=== PATIENT | male | born 1990 | race African-American/Black ===

== ENCOUNTER 2017-07-24 15:41 | Emergency (ER) | payer BC, OTHER ==
[2017-07-24 16:06] VITALS: BP 140/93
[2017-07-24] MEDS ORDERED: Ondansetron 4 MG Tab.DIS PO ONE (16:47)
--- NOTE | 2017-07-24 16:55 | EDM.PDOC ---
ED HPI GENERAL MEDICAL PROBLEM - General Chief Complaint: Gastrointestinal Problem Stated Complaint: ABDOMINAL PAIN Time Seen by Provider: 07/24/17 16:11 Source of Information: Reports: Patient History Limitations: Reports: No Limitations - History of Present Illness INITIAL COMMENTS - FREE TEXT/NARRATIVE: Patient is a 26-year-old male who presents to the ED complaining of nausea and poor appetite since Saturday. Patient states over the weekend he traveled to [place] and consumed large amounts of alcohol over the weekend. He also smoked marijuana on Saturday and since then has felt increasingly more depressed. States he's been able to drink fluids but when it comes to eating he has no appetite. He believes its all from the marijuana use. He does not utilize marijuana daily basis. He states marijuana usage is months apart. He full of negative thoughts. He's lacking motivation for things he previously enjoyed. He has been sleeping more. States the thought of eating makes him nauseated. There is no suicidal thoughts or plan in place. He does not feel like he wants to hurt anybody else. There's been no diagnosis of depression or anxiety in the past. He denies being alcoholic. He's had no alcohol since Saturday when he traveled back home. Patient recently graduated from college but currently works in the [employer]. He works one month on with a break usually at that time. Denies any fever/chills, diarrhea, sore throat, chest pain, shortness of breath, abdominal pain, acid reflux, or any additional complaints. Patient has no past medical history and currently does not take any medications. Surgical history noncontributory. Social history: Alcohol use when traveling. Marijuana use and frequent. Does not smoke. - Related Data Allergies Allergy/AdvReac Type Severity Reaction Status Date / Time No Known Allergies Allergy Verified 07/24/17 16:07 Home Meds: Home Meds . [No Known Home Meds] 07/24/17 [History] Past Medical History - Past Health History Medical/Surgical History: Denies Medical/Surgical History Social & Family History - Family History Family Medical History: Noncontributory - Tobacco Use Smoking Status *Q: Never Smoker Second Hand Smoke Exposure: No - Caffeine Use Caffeine Use: Reports: Coffee - Recreational Drug Use Recreational Drug Use: Yes Drug Use in Last 12 Months: Yes Recreational Drug Type: Reports: Marijuana/Hashish Recreational Drug Use Frequency: Socially ED ROS GENERAL - Review of Systems Review Of Systems: See Below ED EXAM, GI/ABD - Physical Exam Exam: See Below Exam Limited By: No Limitations General Appearance: Alert, WD/WN, No Apparent Distress, Other (Eyes are injected bilaterally.) Ears: Hearing Grossly Normal Nose: Normal Inspection Throat/Mouth: Normal Inspection, Normal Oropharynx, Normal Voice, No Airway Compromise Head: Atraumatic, Normocephalic Neck: Normal Inspection, Supple Respiratory/Chest: No Respiratory Distress, Lungs Clear, Normal Breath Sounds, No Accessory Muscle Use Cardiovascular: Normal Peripheral Pulses, Regular Rate, Rhythm GI/Abdominal Exam: Normal Bowel Sounds, Soft, Non-Tender, No Organomegaly, No Distention Extremities: Normal Inspection Neurological: Alert, Oriented, CN II-XII Intact, Normal Cognition, No Motor/ Sensory Deficits Psychiatric: Normal Affect, Normal Mood Skin Exam: Warm, Dry, Intact, Normal Color Course - Vital Signs Last Recorded V/S: Last Vital Signs Temp 97.8 F 07/24/17 16:03 Pulse 69 07/24/17 16:03 Resp 14 07/24/17 16:03 BP 140/93 H 07/24/17 16:03 Pulse Ox 99 07/24/17 16:03 - Orders/Labs/Meds Labs: Laboratory Tests 07/24/17 07/24/17 07/24/17 Range/Units 16:55 16:55 17:05 WBC 6.35 (4.23-9.07) K/mm3 RBC 5.36 (4.63-6.08) M/mm3 Hgb 16.1 (13.7-17.5) gm/L Hct 45.6 (40.1-51.0) % MCV 85.1 (79.0-92.2) fl MCH 30.0 (25.7-32.2) pg MCHC 35.3 (32.2-35.5) g/dl RDW Std Deviation 38.3 (35.1-43.9) fL Plt Count 275 (163-337) K/mm3 MPV 9.3 L (9.4-12.3) fl Neut % (Auto) 58.3 (34.0-67.9) % Lymph % (Auto) 32.3 (21.8-53.1) % Sheridan % (Auto) 8.5 (5.3-12.2) % Eos % (Auto) 0.5 L (0.8-7.0) Baso % (Auto) 0.2 (0.1-1.2) % Neut # (Auto) 3.71 (1.78-5.38) K/mm3 Lymph # (Auto) 2.05 (1.32-3.57) K/mm3 Sheridan # (Auto) 0.54 (0.30-0.82) K/mm3 Eos # (Auto) 0.03 L (0.04-0.54) K/mm3 Baso # (Auto) 0.01 (0.01-0.08) K/mm3 Sodium (136-145) mEq/L Potassium (3.5-5.1) mEq/L Chloride (98-107) mEq/L Carbon Dioxide (21-32) mEq/L Anion Gap (5-15) BUN (7-18) mg/dL Creatinine (0.7-1.3) mg/dL Est Cr Clr Drug Dosing mL/min Estimated GFR (MDRD) (>60) mL/min BUN/Creatinine Ratio (14-18) Glucose (74-106) mg/dL Calcium (8.5-10.1) mg/dL Total Bilirubin (0.2-1.0) mg/dL AST (15-37) U/L ALT (16-63) U/L Alkaline Phosphatase (46-116) U/L C-Reactive Protein (<1.0) mg/dL Total Protein (6.4-8.2) g/dl Albumin (3.4-5.0) g/dl Globulin gm/dL Albumin/Globulin Ratio (1-2) Lipase (73-393) U/L TSH 3rd Generation (0.358-3.74) uIU/mL Urine Color Yellow (Yellow) Urine Appearance Clear (Clear) Urine pH 6.0 (5.0-8.0) Ur Specific [place] 1.015 (1.005-1.030) Urine Protein Negative (Negative) Urine Glucose (UA) Negative (Negative) Urine Ketones Negative (Negative) Urine Occult Blood Negative (Negative) Urine Nitrite Negative (Negative) Urine Bilirubin Negative (Negative) Urine Urobilinogen 0.2 (0.2-1.0) Ur Leukocyte Esterase Negative (Negative) Urine RBC 0-5 (0-5) /hpf Urine WBC 0-5 (0-5) /hpf Ur Epithelial Cells Not seen (0-5) /hpf Urine Bacteria Not seen (FEW) /hpf Urine Mucus Not seen (FEW) /hpf Urine Opiates Screen Negative (NEGATIVE) Ur Buprenorphine Scrn Negative (NEGATIVE) Ur Oxycodone Screen Negative (NEGATIVE) Urine Methadone Screen Negative (NEGATIVE) Ur Propoxyphene Screen Negative (NEGATIVE) Ur Barbiturates Screen Negative (NEGATIVE) Ur Tricyclics Screen Negative (NEGATIVE) Ur Phencyclidine Scrn Negative (NEGATIVE) Ur Amphetamine Screen Negative (NEGATIVE) U Methamphetamines Scrn Negative (NEGATIVE) U Benzodiazepines Scrn Negative (NEGATIVE) U Cocaine Metab Screen Negative (NEGATIVE) U Marijuana (THC) Screen Negative (NEGATIVE) Ethyl Alcohol (0.00) gm% 07/24/17 Range/Units 17:05 WBC (4.23-9.07) K/mm3 RBC (4.63-6.08) M/mm3 Hgb (13.7-17.5) gm/L Hct (40.1-51.0) % MCV (79.0-92.2) fl MCH (25.7-32.2) pg MCHC (32.2-35.5) g/dl RDW Std Deviation (35.1-43.9) fL Plt Count (163-337) K/mm3 MPV (9.4-12.3) fl Neut % (Auto) (34.0-67.9) % Lymph % (Auto) (21.8-53.1) % Sheridan % (Auto) (5.3-12.2) % Eos % (Auto) (0.8-7.0) Baso % (Auto) (0.1-1.2) % Neut # (Auto) (1.78-5.38) K/mm3 Lymph # (Auto) (1.32-3.57) K/mm3 Sheridan # (Auto) (0.30-0.82) K/mm3 Eos # (Auto) (0.04-0.54) K/mm3 Baso # (Auto) (0.01-0.08) K/mm3 Sodium 137 (136-145) mEq/L Potassium 3.1 L (3.5-5.1) mEq/L Chloride 100 (98-107) mEq/L Carbon Dioxide 29 (21-32) mEq/L Anion Gap 11.1 (5-15) BUN 15 (7-18) mg/dL Creatinine 1.2 (0.7-1.3) mg/dL Est Cr Clr Drug Dosing 121.66 mL/min Estimated GFR (MDRD) > 60 (>60) mL/min BUN/Creatinine Ratio 12.5 L (14-18) Glucose 70 L (74-106) mg/dL Calcium 9.5 (8.5-10.1) mg/dL Total Bilirubin 1.6 H (0.2-1.0) mg/dL AST 36 (15-37) U/L ALT 39 (16-63) U/L Alkaline Phosphatase 86 (46-116) U/L C-Reactive Protein < 0.2 (<1.0) mg/dL Total Protein 8.0 (6.4-8.2) g/dl Albumin 4.2 (3.4-5.0) g/dl Globulin 3.8 gm/dL Albumin/Globulin Ratio 1.1 (1-2) Lipase 164 (73-393) U/L TSH 3rd Generation 2.264 (0.358-3.74) uIU/mL Urine Color (Yellow) Urine Appearance (Clear) Urine pH (5.0-8.0) Ur Specific [place] (1.005-1.030) Urine Protein (Negative) Urine Glucose (UA) (Negative) Urine Ketones (Negative) Urine Occult Blood (Negative) Urine Nitrite (Negative) Urine Bilirubin (Negative) Urine Urobilinogen (0.2-1.0) Ur Leukocyte Esterase (Negative) Urine RBC (0-5) /hpf Urine WBC (0-5) /hpf Ur Epithelial Cells (0-5) /hpf Urine Bacteria (FEW) /hpf Urine Mucus (FEW) /hpf Urine Opiates Screen (NEGATIVE) Ur Buprenorphine Scrn (NEGATIVE) Ur Oxycodone Screen (NEGATIVE) Urine Methadone Screen (NEGATIVE) Ur Propoxyphene Screen (NEGATIVE) Ur Barbiturates Screen (NEGATIVE) Ur Tricyclics Screen (NEGATIVE) Ur Phencyclidine Scrn (NEGATIVE) Ur Amphetamine Screen (NEGATIVE) U Methamphetamines Scrn (NEGATIVE) U Benzodiazepines Scrn (NEGATIVE) U Cocaine Metab Screen (NEGATIVE) U Marijuana (THC) Screen (NEGATIVE) Ethyl Alcohol 0.00 (0.00) gm% Meds: Medications Discontinued Medications Generic Name Dose Route Start Last Admin Trade Name Paulette PRN Reason Stop Dose Admin Ondansetron HCl 4 mg 07/24/17 16:47 07/24/17 16:53 Zofran Odt PO 07/24/17 16:48 4 mg ONETIME ONE Administration - Re-Assessments/Exams Free Text/Narrative Re-Assessment/Exam: IV not required at this time. Patient's urine is light in color. He is not dizzy with ambulation. Vital signs are stable. He has been pushing the fluids since this weekend. Initial labs and studies include CBC, chem 14, CRP, urine drug tox, serum EtOH, lipase, TSH, and UA. Will order Zofran 4 mg ODT. Labs reviewed: CBC, chemistry, UA, and urine drug tox along with serum EtOH did not reveal any concerning findings. Potassium is mildly low at 3.1. Believe patient's poor appetite is related to depression. He will have to see a primary care provider to manage. Will Discharge patient home with instructions as documented. Departure - Departure Time of Disposition: 18:23 Disposition: Home, Self-Care 01 Condition: Good Clinical Impression: Depression (emotion) Qualifiers: Depression Type: unspecified Qualified Code(s): F32.9 - Major depressive disorder, single episode, unspecified - Discharge Information Referrals: Luis Mena [Physician] - Forms: ED Department Discharge Additional Instructions: As discussed due believe the symptoms you are currently experiencing is associated with depression. Alcohol and marijuana use in concomitant use is a depressant that may worsen your underlying depression. At this point due to nausea sensation Will treat with Zofran 4 mg ODT every 6 hours as needed. Eat a balanced diet. Push the fluids. Continue to do things that you enjoy. If for any reason you start feeling that you want to hurt yourself or hurt others please return back to the ED. Follow-up with a primary care provider at [facility] in [place] for further management of depression.
== END 2017-07-24 18:36 | disposition home or self-care (01) ==
LOC: JD.ED 15:41
DX: F32.9 Major depressive disorder, single episode, unspecified (principal)
CPT/HCPCS: 36415; 80053; 80306; 81001; 83690; 84443; 85025; 86140; 99284; A9270; G0480; 99283

== ENCOUNTER 2019-10-13 09:56 | Emergency (ER) | payer SELFPAY ==
[2019-10-13 10:16] VITALS: BP 159/133; PULSE 88
[2019-10-13] MEDS ORDERED: OLANZapine 5 MG Tab PO ONE (10:16)
[2019-10-13 11:12] LABS: ACETAMINOPHEN 0 ug/mL (10-30)
--- NOTE | 2019-10-13 12:25 | EDM.PDOCBH ---
ED HPI GENERAL MEDICAL PROBLEM - General Chief Complaint: Behavioral/Psych Stated Complaint: [facility] Time Seen by Provider: 10/13/19 10:03 Source of Information: Reports: Police, Other (girlfriend) History Limitations: Reports: Other (confused) - History of Present Illness INITIAL COMMENTS - FREE TEXT/NARRATIVE: The patient presents by [place] [employer] for odd behavior. He was found in a field running around without a jacket or shirt and it was cold around 20 degrees. He is alert and talking but not making any sense. If I ask him if he is hurting he will talk about a car he is trying to get for example. He was admitted to [facility] in [place] a couple weeks ago for taking Dabs a synthetic THC and running around naked and being psychotic. He was discharged last week. He was to avoid the THC. His girlfriend said he used again and he has been doing this for 2 days. He has no other health problems. Onset: Gradual Duration: Day(s): Severity: Moderate Improves with: Reports: None Worsens with: Reports: None Associated Symptoms: Reports: No Other Symptoms - Related Data Allergies Allergy/AdvReac Type Severity Reaction Status Date / Time No Known Allergies Allergy Verified 10/13/19 10:16 Home Meds: Home Meds . [No Known Home Meds] 10/13/19 [History] Past Medical History - Past Health History Medical/Surgical History: Denies Medical/Surgical History Musculoskeletal History: Reports: Other (See Below) Other Musculoskeletal History: Slipped disc approx 2 months ago Neurological History: Reports: Other (See Below) Other Neuro History: herniated disk Psychiatric History: Reports: Depression - Past Surgical History Musculoskeletal Surgical History: Reports: None Social & Family History - Family History Family Medical History: Noncontributory - Tobacco Use Smoking Status *Q: Unknown Ever Smoked - Caffeine Use Caffeine Use: Reports: None - Recreational Drug Use Recreational Drug Use: Yes Recreational Drug Type: Reports: Marijuana/Hashish ED ROS GENERAL - Review of Systems Review Of Systems: See Below Constitutional: Reports: No Symptoms HEENT: Reports: No Symptoms Respiratory: Reports: No Symptoms Cardiovascular: Reports: No Symptoms Endocrine: Reports: No Symptoms GI/Abdominal: Reports: No Symptoms : Reports: No Symptoms Musculoskeletal: Reports: No Symptoms Skin: Reports: No Symptoms Neurological: Reports: No Symptoms Psychiatric: Reports: Other (Pyschotic) ED EXAM, BEHAVIORAL HEALTH - Physical Exam Exam: See Below Exam Limited By: No Limitations General Appearance: Alert, No Apparent Distress Ears: Normal External Exam Nose: Normal Inspection Head: Atraumatic, Normocephalic Neck: Normal Inspection Respiratory/Chest: No Respiratory Distress, Lungs Clear, Normal Breath Sounds Cardiovascular: Regular Rate, Rhythm, No Edema, No Murmur GI/Abdominal: Soft, Non-Tender, No Organomegaly, No Mass Back Exam: Normal Inspection Extremities: Normal Inspection Neurological: Alert, No Motor/Sensory Deficits, Oriented x 3 Psychiatric: Other (He makes no sense when I talk to him.) COURSE, BEHAVIORAL HEALTH COMP - Course Vital Signs: Last Vital Signs Temp 98.2 F 10/13/19 10:11 Pulse 88 10/13/19 10:11 Resp 16 10/13/19 10:11 BP 159/133 H 10/13/19 10:11 Pulse Ox 100 10/13/19 10:11 Orders, Labs, Meds: Active Orders 24 hr Category Date Time Status Cardiac Monitoring [RC] . DIRECTED Care 10/13/19 10:07 Active Laboratory Tests 10/13/19 10/13/19 10/13/19 Range/Units 10:36 10:36 10:36 WBC 5.72 (4.23-9.07) K/mm3 RBC 5.23 (4.63-6.08) M/mm3 Hgb 15.7 (13.7-17.5) gm/dl Hct 45.7 (40.1-51.0) % MCV 87.4 (79.0-92.2) fl MCH 30.0 (25.7-32.2) pg MCHC 34.4 (32.2-35.5) g/dl RDW Std Deviation 40.5 (35.1-43.9) fL Plt Count 292 (163-337) K/mm3 MPV 9.4 (9.4-12.3) fl Neut % (Auto) 49.2 (34.0-67.9) % Lymph % (Auto) 40.2 (21.8-53.1) % Morton % (Auto) 9.6 (5.3-12.2) % Eos % (Auto) 0.5 L (0.8-7.0) Baso % (Auto) 0.3 (0.1-1.2) % Neut # (Auto) 2.81 (1.78-5.38) K/mm3 Lymph # (Auto) 2.30 (1.32-3.57) K/mm3 Morton # (Auto) 0.55 (0.30-0.82) K/mm3 Eos # (Auto) 0.03 L (0.04-0.54) K/mm3 Baso # (Auto) 0.02 (0.01-0.08) K/mm3 Sodium 139 (136-145) mEq/L Potassium 4.0 (3.5-5.1) mEq/L Chloride 100 (98-107) mEq/L Carbon Dioxide 29 (21-32) mEq/L Anion Gap 14.0 (5-15) BUN 15 (7-18) mg/dL Creatinine 1.4 H (0.7-1.3) mg/dL Est Cr Clr Drug Dosing 101.56 mL/min Estimated GFR (MDRD) > 60 (>60) mL/min BUN/Creatinine Ratio 10.7 L (14-18) Glucose 104 (74-106) mg/dL Calcium 9.6 (8.5-10.1) mg/dL Total Bilirubin 1.5 H (0.2-1.0) mg/dL AST 52 H (15-37) U/L ALT 58 (16-63) U/L Alkaline Phosphatase 62 (46-116) U/L Total Protein 8.2 (6.4-8.2) g/dl Albumin 4.6 (3.4-5.0) g/dl Globulin 3.6 gm/dL Albumin/Globulin Ratio 1.3 (1-2) Salicylates < 0.2 L (2.8-20) mg/dL Urine Opiates Screen (XLCGJO=132) Ur Buprenorphine Scrn (CUTOFF=10) Ur Oxycodone Screen (RCE1WQ=323) Urine Methadone Screen (IDH4DW=220) Ur Propoxyphene Screen (GDHGTA=700) Acetaminophen 0 L (10-30) ug/mL Ur Barbiturates Screen (BDGVER=982) Ur Tricyclics Screen (NCNXJO=282) Ur Phencyclidine Scrn (CUTOFF=25) Ur Amphetamine Screen (TZXGBU=596) U Methamphetamines Scrn (SCPYNB=683) U Benzodiazepines Scrn (UUTBOY=375) U Cocaine Metab Screen (QDULYF=401) U Marijuana (THC) Screen (CUTOFF=50) Ethyl Alcohol 0.00 (0.00) gm% 10/13/19 Range/Units 11:16 WBC (4.23-9.07) K/mm3 RBC (4.63-6.08) M/mm3 Hgb (13.7-17.5) gm/dl Hct (40.1-51.0) % MCV (79.0-92.2) fl MCH (25.7-32.2) pg MCHC (32.2-35.5) g/dl RDW Std Deviation (35.1-43.9) fL Plt Count (163-337) K/mm3 MPV (9.4-12.3) fl Neut % (Auto) (34.0-67.9) % Lymph % (Auto) (21.8-53.1) % Morton % (Auto) (5.3-12.2) % Eos % (Auto) (0.8-7.0) Baso % (Auto) (0.1-1.2) % Neut # (Auto) (1.78-5.38) K/mm3 Lymph # (Auto) (1.32-3.57) K/mm3 Morton # (Auto) (0.30-0.82) K/mm3 Eos # (Auto) (0.04-0.54) K/mm3 Baso # (Auto) (0.01-0.08) K/mm3 Sodium (136-145) mEq/L Potassium (3.5-5.1) mEq/L Chloride (98-107) mEq/L Carbon Dioxide (21-32) mEq/L Anion Gap (5-15) BUN (7-18) mg/dL Creatinine (0.7-1.3) mg/dL Est Cr Clr Drug Dosing mL/min Estimated GFR (MDRD) (>60) mL/min BUN/Creatinine Ratio (14-18) Glucose (74-106) mg/dL Calcium (8.5-10.1) mg/dL Total Bilirubin (0.2-1.0) mg/dL AST (15-37) U/L ALT (16-63) U/L Alkaline Phosphatase (46-116) U/L Total Protein (6.4-8.2) g/dl Albumin (3.4-5.0) g/dl Globulin gm/dL Albumin/Globulin Ratio (1-2) Salicylates (2.8-20) mg/dL Urine Opiates Screen Negative (GIYXZP=735) Ur Buprenorphine Scrn Negative (CUTOFF=10) Ur Oxycodone Screen Negative (NSH0FB=307) Urine Methadone Screen Negative (LPH2PE=441) Ur Propoxyphene Screen Negative (WGZVES=333) Acetaminophen (10-30) ug/mL Ur Barbiturates Screen Negative (GRLGNZ=131) Ur Tricyclics Screen Negative (ZULKLJ=208) Ur Phencyclidine Scrn Negative (CUTOFF=25) Ur Amphetamine Screen Negative (OSFPJD=363) U Methamphetamines Scrn Negative (NHCNUV=992) U Benzodiazepines Scrn Negative (FODCYH=909) U Cocaine Metab Screen Negative (QOXSVK=930) U Marijuana (THC) Screen Negative (CUTOFF=50) Ethyl Alcohol (0.00) gm% Medications Discontinued Medications Generic Name Dose Route Start Last Admin Trade Name Kevq PRN Reason Stop Dose Admin Olanzapine 5 mg 10/13/19 10:16 10/13/19 10:28 Zyprexa PO 10/13/19 10:17 5 mg ONETIME ONE Administration Re-Assessment/Re-Exam: I did labs and a UDS. His labs all look good. His UDS is negative. I did give him a zyprexa and he was a little better but not making sense still. I feel he needs some help. I talked with Dr Stover at [facility] and he agreed to the transfer. He will need to go by [facility]. They will take him in a few hours but he will go to the group home for now. 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 DIRECTED - Assessment/Plan Last 24 Hours: My Active Orders 10/13/19 10:07 Cardiac Monitoring [RC] . DIRECTED
== END 2019-10-13 12:45 ==
LOC: JD.ED 09:56
DX: F19.950 Other psychoactive substance use, unspecified with psychoactive substance-induced psychotic disorder with delusions (principal)
CPT/HCPCS: 36415; 80053; 80306; 80307; 85025; 99285; A9270

== ENCOUNTER 2020-07-22 10:48 | Emergency (ER) | payer SELFPAY ==
[2020-07-22 11:06] VITALS: BP 130/112; PULSE 74
[2020-07-22] MEDS ORDERED: Ketorolac 60 MG/2 ML SDV IM ONE (11:35)
--- NOTE | 2020-07-22 11:36 | EDM.PDOC ---
ED HPI GENERAL MEDICAL PROBLEM - General Chief Complaint: Lower Extremity Injury/Pain Stated Complaint: R KNEE PAIN Time Seen by Provider: 07/22/20 11:03 Source of Information: Reports: Patient, RN Notes Reviewed History Limitations: Reports: No Limitations - History of Present Illness INITIAL COMMENTS - FREE TEXT/NARRATIVE: Patient is a 29-year-old male presenting to the emergency department with complaints of right knee and anterior thigh pain. States he was playing basketball yesterday and felt something pop above his knee. It sent a shooting pain up his thigh. He now has pain with ambulation. Pain is localized to above the right knee and up the thigh. He has a medical marijuana card and has been using marijuana for pain but states it has not worked for him. He has not taken any NSAIDs today. Right Knee Pain Score (Numeric/FACES): 10 - Related Data Allergies Allergy/AdvReac Type Severity Reaction Status Date / Time No Known Allergies Allergy Verified 10/13/19 10:16 Home Meds: Home Meds Naproxen [Naprosyn] 500 mg PO Q12HR 5 Days #10 tab 07/22/20 [Rx] Past Medical History - Past Health History Medical/Surgical History: Denies Medical/Surgical History Musculoskeletal History: Reports: Back Pain, Chronic, Other (See Below) Other Musculoskeletal History: Slipped disc approx 2 months ago Neurological History: Reports: Other (See Below) Other Neuro History: herniated disk Psychiatric History: Reports: Depression - Past Surgical History Musculoskeletal Surgical History: Reports: None Social & Family History - Family History Family Medical History: No Pertinent Family History - Tobacco Use Tobacco Use Status *Q: Never Tobacco User - Caffeine Use Caffeine Use: Reports: None - Recreational Drug Use Recreational Drug Use: Yes Recreational Drug Type: Reports: Marijuana/Hashish Review of Systems - Review of Systems Review Of Systems: Comprehensive ROS is negative, except as noted in HPI. ED EXAM, GENERAL - Physical Exam Exam: See Below General Appearance: Alert, WD/WN, No Apparent Distress Respiratory/Chest: No Respiratory Distress, Lungs Clear, Normal Breath Sounds, No Accessory Muscle Use, Chest Non-Tender Cardiovascular: Normal Peripheral Pulses, Regular Rate, Rhythm, No Edema, No Gallop, No JVD, No Murmur, No Rub Extremities: Other (Tenderness to palpation proximal to the right patella and extending up to the thigh. No obvious deformity or swelling.) Neurological: Alert, Oriented, CN II-XII Intact, Normal Cognition, Normal Gait, Normal Reflexes, No Motor/Sensory Deficits Psychiatric: Normal Affect, Normal Mood Skin Exam: Warm, Dry, Intact, Normal Color, No Rash Course - Vital Signs Last Recorded V/S: Last Vital Signs Temp 99.0 F 07/22/20 11:02 Pulse 74 07/22/20 11:02 Resp 18 07/22/20 11:02 BP 130/112 H 07/22/20 11:02 Pulse Ox 96 07/22/20 11:02 - Orders/Labs/Meds Orders: Active Orders 24 hr Category Date Time Status Knee Min 4V Rt [CR] Stat Exams 07/22/20 11:07 Taken DME for Discharge [COMM] Routine Oth 07/22/20 11:48 Ordered Meds: Medications Discontinued Medications Generic Name Dose Route Start Last Admin Trade Name Kevq PRN Reason Stop Dose Admin Ketorolac Tromethamine 60 mg 07/22/20 11:35 Toradol IM 07/22/20 11:36 ONETIME ONE - Re-Assessments/Exams Free Text/Narrative Re-Assessment/Exam: Patient is a 29-year-old male presenting to the emergency department with complaints of right knee and quadricep pain. States he was playing basketball yesterday and felt something pop in his knee which is in a shooting pain up his leg. He has not taken anything for pain today other than marijuana. Denies any previous injuries to this knee. Have ordered x-ray of the right knee as well as Toradol 60 mg IM. 07/22/20 11:48 X-ray of the right knee shows no acute abnormalities. We will place the patient in a knee immobilizer and provide crutches. We will send a prescription for Naprosyn to clinic [facility]. Recommend partial weightbearing until pain improves. If he still having significant pain after 1 week, he should follow-up in the clinic to discuss possibility of an MRI. Discharge instructions as documented. Departure - Departure Time of Disposition: 11:50 Disposition: Home, Self-Care 01 Condition: Good Clinical Impression: Strain of right knee Qualifiers: Encounter type: initial encounter Qualified Code(s): S86.911A - Strain of unspecified muscle(s) and tendon(s) at lower leg level, right leg, initial encounter - Discharge Information *PRESCRIPTION DRUG MONITORING PROGRAM REVIEWED*: No *COPY OF PRESCRIPTION DRUG MONITORING REPORT IN PATIENT GABRIEL: No Prescriptions: Naproxen [Naprosyn] 500 mg PO Q12HR 5 Days #10 tab Instructions: Knee Sprain, Adult, [id number] Referrals: PCP,None [Primary Care Provider] - Forms: ED Department Discharge Additional Instructions: You were seen in the emergency department today for right knee and thigh pain. Xrays were completed and showed no acute abnormalities. While in ER, you recieved an injection of Toradol to treat the pain and inflammation. You have been provided a knee immobilizer and crutches. Use these as needed until the pain improves. A [facility] for [facility] from 12-2p today. Take this medication as prescribed starting this evening. Recommend intermittent ice and elevation of the extremity. If you are still having significant discomfort after 1 week, follow-up in the clinic to discuss the possibility of an MRI. Return to ER as needed. Sepsis Event Note (ED) - Evaluation Sepsis Screening Result: No Definite Risk - Focused Exam Vital Signs: Vital Signs Temp Pulse Resp BP Pulse Ox 07/22/20 11:02 99.0 F 74 18 130/112 H 96 - My Orders Last 24 Hours: My Active Orders 07/22/20 11:07 Knee Min 4V Rt [CR] Stat 07/22/20 11:48 DME for Discharge [COMM] Routine - Assessment/Plan Last 24 Hours: My Active Orders 07/22/20 11:07 Knee Min 4V Rt [CR] Stat 07/22/20 11:48 DME for Discharge [COMM] Routine
--- NOTE | 2020-07-22 12:28 | CR ---
Right knee: 4 views of the right knee were obtained. Comparison: No previous studies available. Small joint effusion is seen. Medial and lateral joint compartments are maintained in height. No acute fracture, dislocation or other bony abnormality is appreciated. Impression: 1. Small joint effusion. 2. No acute bony abnormality is appreciated. Diagnostic code #2
== END 2020-07-22 12:11 | disposition home or self-care (01) ==
LOC: JD.ED 10:48
DX: S86.911A Strain of unspecified muscle(s) and tendon(s) at lower leg level, right leg, initial encounter (principal); X58.XXXA Exposure to other specified factors, initial encounter; Y93.67 Activity, basketball
CPT/HCPCS: 73564; 96372; 99283; J1885

== ENCOUNTER 2020-08-04 10:20 | Day surgery (SDC) | payer SELFPAY ==
[~2020-08-04 10:20] MED LIST: Lactated Ringers 1,000 ML IV SCH; Lidocaine 1%/Sod Bicarbonate in NS 8.4% 1 ML Syringe IDERM PRN; Sodium Chloride 0.9% 10 ML Syringe FLUSH PRN
[2020-08-04] MEDS ORDERED: Midazolam 1 MG/ML 2 ML SDV ONE (10:57)
[2020-08-04] MEDS ORDERED: fentaNYL 100 MCG/2 ML SDV ONE (10:57)
[2020-08-04] MEDS ORDERED: Propofol 200 MG/20 ML SDV ONE ×2 (10:57→12:54)
[2020-08-04] MEDS ORDERED: Dexmedetomidine 200 MCG/2 ML SDV ONE (10:58)
[2020-08-04] MEDS ORDERED: Bupivacaine 0.25% 10 ML SDV ONE (11:00)
[2020-08-04] MEDS ORDERED: Lidocaine 2% with EPINEPHrine 1:200,000 20 ML SDV ONE (11:02)
--- NOTE | 2020-08-04 11:04 | PCM.PREANE ---
Preanesthetic Assessment - Procedure Proposed Procedure: right quadricepts tendon repair - Anesthesia/Transfusion/Family Hx Anesthesia History: No Prior Anesthesia Family History of Anesthesia Reaction: No Transfusion History: No Prior Transfusion(s) - Review of Systems General: No Symptoms Pulmonary: No Symptoms Cardiovascular: No Symptoms Gastrointestinal: No Symptoms Neurological: No Symptoms Other: Reports: None - Physical Assessment NPO Status Date: 08/03/20 NPO Status Time: 21:00 Vital Signs: 152/78 72 99% 16 98.5 Height: 6 ft 6 in Weight: 127 kg ASA Class: 2 Mental Status: Alert & Oriented x3 Airway Class: Mallampati = 1 Dentition: Reports: Normal Dentition Thyro-Mental Finger Breadths: 3 Mouth Opening Finger Breadths: 3 ROM/Head Extension: Full Lungs: Clear to Auscultation, Normal Respiratory Effort Cardiovascular: Regular Rate, Regular Rhythm - Allergies Allergies/Adverse Reactions: Allergies Allergy/AdvReac Type Severity Reaction Status Date / Time haloperidol [From Haldol] Allergy Confusion Verified 08/04/20 11:04 - Blood Blood Available: No - Acknowledgements Anesthesia Type Planned: General Anesthesia, Regional Block Pt an Appropriate Candidate for the Planned Anesthesia: Yes Alternatives and Risks of Anesthesia Discussed w Pt/Guardian: Yes Pt/Guardian Understands and Agrees with Anesthesia Plan: Yes PreAnesthesia Questionnaire - Past Health History Medical/Surgical History: Denies Medical/Surgical History HEENT History: Reports: None Cardiovascular History: Reports: None Respiratory History: Reports: None Gastrointestinal History: Reports: None, Other (See Below) Genitourinary History: Reports: None EXTENSION SERVICE AGENT History: Reports: None Musculoskeletal History: Reports: Back Pain, Chronic, Other (See Below) Other Musculoskeletal History: Slipped disc Neurological History: Reports: None, Other (See Below) Other Neuro History: herniated disk Psychiatric History: Reports: Anxiety, Depression Endocrine/Metabolic History: Reports: None Hematologic History: Reports: Other (See Below) Other Hematologic History: hypokalemia Immunologic History: Reports: None Oncologic (Cancer) History: Reports: None Dermatologic History: Reports: None - Past Surgical History Head Surgeries/Procedures: Reports: None HEENT Surgical History: Reports: None Cardiovascular Surgical History: Reports: None Respiratory Surgical History: Reports: None GI Surgical History: Reports: None Female Surgical History: Reports: None Male Surgical History: Reports: None Musculoskeletal Surgical History: Reports: None Dermatological Surgical History: Reports: None - SUBSTANCE USE Tobacco Use Status *Q: Current Some Day Tobacco User Tobacco Use Within Last Twelve Months: Other (See Below) ([facility]) Second Hand Smoke Exposure: Yes Days Per Week of Alcohol Use: 0 Recreational Drug Use History: Yes Recreational Drug Type: Reports: Marijuana/Hashish - HOME MEDS Home Medications: Home Meds Acetaminophen/HYDROcodone [Balko 325-5 MG] 1 - 2 tab PO Q6H PRN #30 tablet 08/04/20 [Rx] Aspirin [Aspirin EC] 325 mg PO BID #84 tab 08/04/20 [Rx] - CURRENT (IN HOUSE) MEDS Current Meds: Current Medications Lactated Ringer's (Ringers, Lactated) 1,000 mls @ 125 mls/hr IV ASDIRECTED NANDINI Stop: 08/04/20 23:00 Lidocaine/Sodium Bicarbonate (Buffered Lidocaine 1% In Ns 8.4%) 0.25 ml IDERM ONETIME PRN PRN Reason: Prior to IV Start Stop: 08/04/20 23:00 Sodium Chloride (Saline Flush) 10 ml FLUSH ASDIRECTED PRN PRN Reason: Keep Vein Open Stop: 08/04/20 23:00
[2020-08-04] MEDS ORDERED: Dexamethasone 4 MG/ML 5 ML MDV ONE (11:05)
[2020-08-04] MEDS ORDERED: Ropivacaine 0.5% 5 MG/ML 30 ML SDV ONE (11:08)
[2020-08-04] MEDS ORDERED: Ketamine 500 mg/10 ML MDV ONE (11:40)
[2020-08-04] MEDS ORDERED: ceFAZolin 1 GM Vial ONE (11:43)
[2020-08-04] MEDS ORDERED: Ondansetron 4 MG/2 ML SDV ONE ×2 (11:53)
[2020-08-04] MEDS ORDERED: Lactated Ringers 1,000 ML ONE (12:11)
--- NOTE | 2020-08-04 12:26 | PCM.PRNOTE ---
- Free Text/Narrative Note: Postoperative regional pain control requested by surgeon. Pre-op Dx: Rt quandriceps tendon tear Post-op Rx: Rt quandriceps tendon repair. Procedure: Rt Femoral nerve block with U/S guidance and nerve stimulator Requesting surgeon: Dr. Schaefer Ct Risks and benefits discussed with the patient including Rt. leg weakness x 24 hrs., block failure, groin pain. Permit signed. Patient in preoperative room, stable , alert and awake. Time out performed. Oxygen 3L via NC. Right groin area was prepped with Chloraprep x 1 and allowed to dry. Midazolam IV 3 mg given. Local infiltration with 2 cc of 1% Lidocaine. [facility] femoral nerve and artery were identified under ultrasound prior to needle insertion. 4" Stimuplex needle #20 G was inserted under US guidance. Needle penetration through fascia elsie and fascia iliaca observed. Quadriceps femoris muscle response with patellar twitch obtained at 0.6 mA with nerve stimulation. Under direct visualization of needle tip the injection of 0.5% Ropivacaine with 1:200,000 epinephrine (22mls) , 6 ml of 1% Lidocaine with added 8 mg of Dexamethasone and 40 mcg of Dexmedetomidine, total of 30 mls in divided doses maintaining negative aspiration was completed without problems. No local anesthetic toxicity was noted. Patient is awake, stable and tolerated the procedure well. Please see the attached U/S images Time: 11:23 - 11:32
--- NOTE | 2020-08-04 13:37 | PCM48HPAN ---
Post Anesthesia Note - EVALUATION WITHIN 48HRS OF ANESTHETIC Vital Signs in Normal Range: Yes Patient Participated in Evaluation: Yes Respiratory Function Stable: Yes Airway Patent: Yes Cardiovascular Function Stable: Yes Hydration Status Stable: Yes Pain Control Satisfactory: Yes Nausea and Vomiting Control Satisfactory: Yes Mental Status Recovered: Yes Vital Signs: Last Vital Signs Temp 97.2 F 08/04/20 13:19 Pulse 92 08/04/20 13:19 Resp 17 08/04/20 13:19 BP 140/65 08/04/20 13:19 Pulse Ox 100 08/04/20 13:19
[2020-08-04 14:55] VITALS: BP 128/60; PULSE 70
--- NOTE | 2020-08-05 10:46 | CR ---
Right knee: 6 fluoroscopic spot views were obtained of the right knee. Comparison: Prior right knee MRI of 07/28/20. Findings: There are 2 fixation screws being seen through the patella. No additional osseous abnormality is seen. Fluoroscopy time is given as 25.8 seconds. Impression: 1. Procedural study as noted above. Diagnostic code #2
--- NOTE | 2020-08-17 12:37 | PCM.OPNOTE ---
- General Post-Op/Procedure Note Date of Surgery/Procedure: 08/04/20 Operative Procedure(s): repair of right quadriceps tendon rupture Pre Op Diagnosis: quadriceps tendon rupture Post-Op Diagnosis: Same Anesthesia Technique: MAC, Regional Block Primary Surgeon: Silvano Burris Anesthesia Provider: Emmett Monte Public Address System Installer: Giovana Veloz EBL in mLs: 20 Complications: None Condition: Good
--- NOTE | 2020-08-19 15:16 | PCM.SN.2 ---
- Free Text/Narrative Note: Telephone follow up after clinic visit The patient has been seen by Giovana Veloz PA-C during [facility] and he complained about having some burning sensation in his right groin and numbness at the right side of his scrotum. I have called the patient at home to follow up. On discussion, he described that the femoral block lasted around 24 hours with having no pain at the knee during this period. 14 days postoperatively, he reports that his quarter of right scrotum has still numbness and he gets intermittent burning and discomfort sensation at his right groin. Per patient, he is taking Oxycodone, Flexeril, Aspirin and Celecoxib PO as prescribed. He has been using cold / heat pads at the are to relieve these sensations. He also states that the it bothers him more during the night time. I have discussed with the patient the side effects of the regional block and exp lained that these sensations, though very rare, may occasionally last for extended period of time after the block. Patient has been instructed to continue with the current medication regimen. The patient verbalized understanding. We will continue to follow up with the patient progress, and I am planning to see and assess him during his next appointment at the clinic on 09/16/20.
--- NOTE | 2020-08-22 08:10 | OR ---
DATE OF OPERATION: 08/04/2020 SURGEON: Silvano Burris MD OPERATION PERFORMED: Repair of right quadriceps tendon rupture. PREOPERATIVE DIAGNOSIS: Right quadriceps tendon rupture. POSTOPERATIVE DIAGNOSIS: Right quadriceps tendon rupture. ANESTHESIA: MAC with regional block. ANESTHESIA PROVIDER: Michelle Ambriz. GRAZING EXAMINER: Giovana Veloz PA-C. ESTIMATED BLOOD LOSS: 20 mL. COMPLICATIONS: None. CONDITION: Stable. DESCRIPTION OF PROCEDURE: The patient was identified in the preoperative holding area. Proper site was marked and identified by the surgeon. The patient was taken back to the operating table where after adequate anesthesia, the patient had a nonsterile tourniquet applied to the right lower extremity. Right lower extremity was then sterilely prepped and draped in the usual sterile fashion. OR time-out was performed. The patient received 2 g IV Ancef. Right lower extremity was exsanguinated. Tourniquet was insufflated to 250 mmHg. Standard anterior incision over the patella and the quadriceps tendon was done. This was taken down to the tear. The patient was noted to have a tear roughly 3 cm proximal to the attachment of the quadriceps tendon in the mid portion. It was noted to be in multiple strands, especially in the proximal region with significant tearing with multiple slips and strands of the quadriceps tendon. At this time, we evacuated hematoma. We irrigated normal saline through the wound. A #5 Ethibond suture was then used to bring all of the proximal strands together to form one cohesive strand. I then was able to use a modified Krackow stitch on the quadriceps tendon, both proximally and then distally, leaving suture ends. K-wire was then placed in a retrograde fashion through the patella, up through the quadriceps tendon that was still attached. The suture limbs of the #5 FiberWire were then brought through the patella to the inferior pole. These were then tied approximating the quadriceps tendon. A #5 FiberWire was then used for [id number] stitches around the medial retinaculum all the way to the lateral side, making sure not to overtighten the lateral side. It was found to have adequate fixation and was able to bend to 90 degrees without any signs of opening of the tear site. During this, the C-arm fluoroscopy was utilized to make sure the pins were in a proper position. Once this was completed, adequate saline was irrigated through the wound, 2-0 Vicryl was used subcutaneously, Prineo was used for closure of the skin. The patient had a sterile soft dressing and a hinged knee brace locked in extension applied and was sent to the PACU in stable condition. MMEDUARDO /[id number]
--- NOTE | 2020-09-17 15:01 | PCM.SN.2 ---
- Free Text/Narrative Note: Anesthesia follow-up. The patient has been seen today for his appointment [facility]. I have met with the patient follow-up on his previous complaints of partial right scrotum numbness and intermittent burning/discomfort at the right groin. The patient reported that he did not experience any more numbness sensations in his right scrotum or burning in the right groin at that time. Per his report he only experienced residual feeling of intermittent numbness sensation in the upper parts of his right inner thigh surface. The patient also stated that these sensations were subsiding with the course of the time and not bothering him significantly. He denied any other areas of numbness or tingling in his right lower extremity. I have discussed with the patient again the potential side effects of the regional block and explained that these sensations, though very rare, may occasionally last for extended period of time after the block and I also reassured him that these sensations are expected to subside with the course of time. The patient verbalized understanding. We will be glad to re-evaluate the patient in future if the need arises.
== END 2020-08-04 14:42 | disposition home or self-care (01) ==
LOC: JD.SDS 10:20
PROVIDERS: ATTEND Orthopaedic Surgery
DX: S76.111A Strain of right quadriceps muscle, fascia and tendon, initial encounter (principal); E87.6 Hypokalemia; F17.200 Nicotine dependence, unspecified, uncomplicated; Z79.899 Other long term (current) drug therapy; Z79.82 Long term (current) use of aspirin
CPT/HCPCS: 27385; 36415; 76000; 80048; J0690; J1100; J2250; J2405; J2704; J2795; J3010; J3490; J7120; 01320; 64415

== ENCOUNTER 2021-02-21 15:14 | Emergency (ER) | payer SELFPAY ==
[2021-02-21 15:30] VITALS: BP 142/90; PULSE 91
--- NOTE | 2021-02-21 15:39 | EDM.PDOC ---
ED HPI GENERAL MEDICAL PROBLEM - General Chief Complaint: Behavioral/Psych Stated Complaint: SHAKES UNABLE TO RELAX Time Seen by Provider: 02/21/21 15:38 - History of Present Illness INITIAL COMMENTS - FREE TEXT/NARRATIVE: 30-year-old male presents the emergency room with inability to relax. Patient attributes this to quitting marijuana he quit several weeks ago. He has had similar reactions in the past and thought quitting it elevated his CPK. He was told when he was seen down in [place] that his CK was elevated after he quit and he is very concerned about this. The patient is treated for depression anxiety and seems to be doing okay with this from reviewing his medications 1 with think he is treated for bipolar illness. He has no suicidal wishes or thoughts. And he has no thoughts of harming anyone. Patient does not have a ride home so it is not possible to try and give him a mild sedative at this point. - Related Data Allergies Allergy/AdvReac Type Severity Reaction Status Date / Time haloperidol [From Haldol] AdvReac Confusion Verified 02/21/21 15:23 Home Meds: Home Meds Divalproex Sodium 750 mg PO BEDTIME 02/21/21 [History] risperiDONE [Risperdal] 2 mg PO BID PRN 02/21/21 [History] traZODone 100 mg PO BEDTIME 02/21/21 [History] Past Medical History - Past Health History Medical/Surgical History: Denies Medical/Surgical History HEENT History: Reports: None Cardiovascular History: Reports: None Respiratory History: Reports: None Gastrointestinal History: Reports: None, Other (See Below) Other Gastrointestinal History: nausea Genitourinary History: Reports: None [employer] History: Reports: None Musculoskeletal History: Reports: Back Pain, Chronic, Other (See Below) Other Musculoskeletal History: Slipped disc Neurological History: Reports: None, Other (See Below) Other Neuro History: herniated disk Psychiatric History: Reports: Anxiety, Depression Endocrine/Metabolic History: Reports: None Hematologic History: Reports: Other (See Below) Other Hematologic History: hypokalemia Immunologic History: Reports: None Oncologic (Cancer) History: Reports: None Dermatologic History: Reports: None - Infectious Disease History Infectious Disease History: Reports: None - Past Surgical History Head Surgeries/Procedures: Reports: None HEENT Surgical History: Reports: None Cardiovascular Surgical History: Reports: None Respiratory Surgical History: Reports: None GI Surgical History: Reports: None Male Surgical History: Reports: None Musculoskeletal Surgical History: Reports: None Dermatological Surgical History: Reports: None Social & Family History - Family History Family Medical History: No Pertinent Family History - Tobacco Use Tobacco Use Status *Q: Never Tobacco User - Caffeine Use Caffeine Use: Reports: Coffee - Recreational Drug Use Recreational Drug Use: Yes Drug Use in Last 12 Months: Yes Recreational Drug Type: Reports: Marijuana/Hashish Recreational Drug Use Frequency: Daily ED ROS GENERAL - Review of Systems Review Of Systems: See Below Constitutional: Reports: No Symptoms HEENT: Reports: No Symptoms Respiratory: Reports: No Symptoms Cardiovascular: Reports: No Symptoms Endocrine: Reports: No Symptoms GI/Abdominal: Reports: No Symptoms : Reports: No Symptoms Musculoskeletal: Reports: No Symptoms Neurological: Reports: Tremors Psychiatric: Reports: No Symptoms Hematologic/Lymphatic: Reports: No Symptoms Immunologic: Reports: No Symptoms ED EXAM, GENERAL - Physical Exam Exam: See Below Exam Limited By: No Limitations General Appearance: Alert, No Apparent Distress Ears: Normal External Exam, Normal Canal, Hearing Grossly Normal, Normal TMs Nose: Normal Inspection, Normal Mucosa, No Blood Throat/Mouth: Normal Inspection, Normal Lips, Normal Teeth, Normal Gums, Normal Oropharynx, Normal Voice, No Airway Compromise Head: Atraumatic, Normocephalic Neck: Normal Inspection, Supple, Non-Tender, Full Range of Motion Respiratory/Chest: No Respiratory Distress, Lungs Clear, Normal Breath Sounds, No Accessory Muscle Use, Chest Non-Tender Cardiovascular: Normal Peripheral Pulses, Regular Rate, Rhythm, No Edema, No Gallop, No JVD, No Murmur, No Rub Neurological: Alert, Oriented, Normal Cognition Psychiatric: Normal Affect, Normal Mood Skin Exam: Warm, Dry, Intact Course - Vital Signs Last Recorded V/S: Last Vital Signs Temp 36.3 C 02/21/21 15:28 Pulse 91 02/21/21 15:28 Resp 18 02/21/21 15:28 BP 142/90 H 02/21/21 15:28 Pulse Ox 96 02/21/21 15:28 - Orders/Labs/Meds Orders: Active Orders 24 hr Category Date Time Status CKMB [CHEM] Stat Lab 02/21/21 17:19 Stop Req UA RFX EDILSON AND CULT IF INDIC [URIN] Stat Lab 02/21/21 17:18 Stop Req Labs: Laboratory Tests 02/21/21 02/21/21 Range/Units 16:07 16:07 WBC 7.41 (4.23-9.07) K/mm3 RBC 4.48 L (4.63-6.08) M/mm3 Hgb 13.3 L D (13.7-17.5) gm/dl Hct 39.8 L (40.1-51.0) % MCV 88.8 (79.0-92.2) fl MCH 29.7 (25.7-32.2) pg MCHC 33.4 (32.2-35.5) g/dl RDW Std Deviation 41.8 (35.1-43.9) fL Plt Count 226 (163-337) K/mm3 MPV 9.7 (9.4-12.3) fl Neut % (Auto) 56.2 (34.0-67.9) % Lymph % (Auto) 30.9 (21.8-53.1) % [place] % (Auto) 10.7 (5.3-12.2) % Eos % (Auto) 1.6 (0.8-7.0) Baso % (Auto) 0.3 (0.1-1.2) % Neut # (Auto) 4.17 (1.78-5.38) K/mm3 Lymph # (Auto) 2.29 (1.32-3.57) K/mm3 [place] # (Auto) 0.79 (0.30-0.82) K/mm3 Eos # (Auto) 0.12 (0.04-0.54) K/mm3 Baso # (Auto) 0.02 (0.01-0.08) K/mm3 Sodium 140 (136-145) mEq/L Potassium 3.9 (3.5-5.1) mEq/L Chloride 102 (98-107) mEq/L Carbon Dioxide 28 (21-32) mEq/L Anion Gap 13.9 (5-15) BUN 23 H (7-18) mg/dL Creatinine 1.1 (0.7-1.3) mg/dL Est Cr Clr Drug Dosing 128.10 mL/min Estimated GFR (MDRD) > 60 (>60) mL/min BUN/Creatinine Ratio 20.9 H (14-18) Glucose 102 H (70-99) mg/dL Calcium 9.2 (8.5-10.1) mg/dL Total Bilirubin 0.5 (0.2-1.0) mg/dL AST 26 (15-37) U/L ALT 32 (16-63) U/L Alkaline Phosphatase 57 (46-116) U/L Creatine Kinase 827 H (39-308) U/L Total Protein 7.7 (6.4-8.2) g/dl Albumin 4.1 (3.4-5.0) g/dl Globulin 3.6 gm/dL Albumin/Globulin Ratio 1.1 (1-2) TSH 3rd Generation 0.893 (0.358-3.74) uIU/mL Meds: Medications Discontinued Medications Generic Name Dose Route Start Last Admin Trade Name Freelza PRN Reason Stop Dose Admin Lactated Ringer's 1,000 mls @ 999 mls/hr 02/21/21 17:18 Ringers, Lactated IV 02/21/21 18:18 .BOLUS ONE - Re-Assessments/Exams Free Text/Narrative Re-Assessment/Exam: 02/21/21 17:27 And CPK is elevated. He has been lifting weights at the gym but he has been driving a bunch recently just drove back up here from [place]. I wanted to give him some fluids check a urinalysis and investigate the possibility of ordering CPK isoenzymes but the patient refused this as he wants to go home we discussed the pros and cons of this and I do not advise it but he still wants to go home. Patient agrees to follow-up in the clinic on 28 February at which time he already has an appointment. He agrees to push lots of fluids. He agrees to return to the emergency room if he has any questions problems if his urine turns dark. Departure - Departure Time of Disposition: 17:28 Disposition: Home, Self-Care 01 Clinical Impression: Elevated CPK, Tremor - Discharge Information Referrals: PCP,None [Primary Care Provider] - Forms: ED Department Discharge Additional Instructions: Return to the emergency room with any questions problems or worsening symptoms. Return if you develop unusual pain or if your urine turns dark. Push lots of fluids. Follow-up in the clinic as you have scheduled on February 28 tell them about your elevated CPK. Sepsis Event Note (ED) - Evaluation Sepsis Screening Result: No Definite Risk - Focused Exam Vital Signs: Vital Signs Temp Pulse Resp BP Pulse Ox 02/21/21 15:28 36.3 C 91 18 142/90 H 96 - My Orders Last 24 Hours: My Active Orders 02/21/21 17:18 UA RFX EDILSON AND CULT IF INDIC [URIN] Stat 02/21/21 17:19 CKMB [CHEM] Stat - Assessment/Plan Last 24 Hours: My Active Orders 02/21/21 17:18 UA RFX EDILSON AND CULT IF INDIC [URIN] Stat 02/21/21 17:19 CKMB [CHEM] Stat
[2021-02-21] MEDS ORDERED: Lactated Ringers 1,000 ML IV ONE (17:18)
== END 2021-02-21 17:36 | disposition home or self-care (01) ==
LOC: JD.ED 15:14
DX: R25.1 Tremor, unspecified (principal); R74.8 Abnormal levels of other serum enzymes
CPT/HCPCS: 36415; 80053; 82550; 84443; 85025; 99284